=== PATIENT | male | born 1970 | race Caucasian/White ===

== ENCOUNTER 2021-10-07 00:26 | Emergency (ER) | payer MEDICAID, MEDICARE | END 2021-10-07 02:07 | disposition home or self-care (01) | LOC: CSHERS 00:26 | DX: S90.822A Blister (nonthermal), left foot, initial encounter (principal); S90.821A Blister (nonthermal), right foot, initial encounter; X58.XXXA Exposure to other specified factors, initial encounter | CPT/HCPCS: 99283 ==